=== PATIENT | female | born 1995 | race Hispanic/Latino ===

== ENCOUNTER 2018-01-09 21:00 | Emergency (ER) | payer OTHER ==
[2018-01-09 22:18] LABS: BASOPHILS % (AUTO) 0.5 % (0.0-5.0); EOSINOPHILS % (AUTO) 0.2 % (0.0-8.0); HEMATOCRIT 29.2 % (36-48); LYMPHOCYTES % (AUTO) 8.6 % (21.0-51.0); MEAN CORPUSCULAR HEMOGLOBIN 24.7 pg (27.0-33.0); MEAN CORPUSCULAR HGB CONC 33.3 g/dL (32.0-36.0); MEAN CORPUSCULAR VOLUME 74.2 fL (79-99); MONOCYTES % (AUTO) 5.4 % (3.0-13.0); NEUTROPHILS % (AUTO) 85.3 % (40.0-77.0); PLATELET COUNT (AUTO) 242 K/uL (130-400); RED BLOOD CELL COUNT(AUTO) 3.93 MIL/uL (4.00-5.50); RED CELL DISTRIBUTION WIDTH 14.9 % (11.0-15.5); WHITE BLOOD COUNT (AUTO) 10.6 K/uL (4.8-10.8)
[2018-01-09 22:34] LABS: CREATININE 0.6 mg/dL (0.5-1.5); POTASSIUM 3.2 mmol/L (3.5-5.1)
[2018-01-09 22:39] LABS: ALBUMIN 2.3 g/dL (3.5-5.0); BILIRUBIN,TOTAL 0.4 mg/dL (0.2-1.0); TOTAL PROTEIN, SERUM 6.3 g/dL (6.0-8.3)
[2018-01-09 22:56] LABS: RAPID GROUP A STREP NEGATIVE (NEGATIVE)
[2018-01-09] MEDS ORDERED: POTASSIUM BICARB/CIT AC 25 MEQ TABLET.EFF ONE (23:00)
[2018-01-09] MEDS ORDERED: ACETAMINOPHEN 325 MG TAB ONE (23:00)
[2018-01-10 00:22] LABS: APPEARANCE,URINE Clear (CLEAR); BILIRUBIN,URINE Negative (NEGATIVE); COLOR,URINE Yellow (YELLOW); GLUCOSE, URINE (UA) Negative (NEGATIVE); KETONES,URINE Negative (NEGATIVE); LEUKOCYTE ESTERASE ,URINE Small (NEGATIVE); NITRATE,URINE Negative (NEGATIVE); OCCULT BLOOD,URINE Negative (NEGATIVE); PH,URINE 7.5 (5.0-8.0); PROTEIN,URINE Negative (NEGATIVE); UROBILINOGEN,URINE 0.2 mg/dL (0.2-1.0)
[2018-01-10 00:41] LABS: BACTERIA,URINE Rare /HPF (None Seen); MUCUS,URINE Moderate LPF (None Seen); RBC,URINE 0-1 /HPF (0-1); SQUAMOUS EPITHELIAL CELL,UR Moderate /HPF (0-2)
== END 2018-01-10 02:53 | disposition home or self-care (01) ==
LOC: EDH 21:00
DX: M79.1 Myalgia (principal); R50.9 Fever, unspecified; M25.50 Pain in unspecified joint
CPT/HCPCS: 36415; 71045; 76856; 80053; 81001; 85025; 87040; 87088; 87804; 87880; 96360; 96361

== ENCOUNTER 2018-10-28 16:30 | Observation (INO) | payer MEDICAID, OTHER ==
[~2018-10-28] VITALS: Ht 149.9 cm; Wt 57.2 kg
[2018-10-28] MEDS ORDERED: ACETAMINOPHEN 325 MG TAB ONE ×2 (18:09→23:37)
[2018-10-28] MEDS ORDERED: ONDANSETRON ODT 4 MG TAB ONE (18:09)
[2018-10-28] MEDS ORDERED: ONDANSETRON HCL 4 MG/2 ML VIAL ONE (18:14)
[2018-10-28 18:23] LABS: BASOPHILS % (AUTO) 0.3 % (0.0-5.0); EOSINOPHILS % (AUTO) 0.3 % (0.0-8.0); HEMATOCRIT 30.8 % (36-48); LYMPHOCYTES % (AUTO) 10.3 % (21.0-51.0); MEAN CORPUSCULAR HEMOGLOBIN 23.9 pg (27.0-33.0); MEAN CORPUSCULAR HGB CONC 32.9 g/dL (32.0-36.0); MEAN CORPUSCULAR VOLUME 72.6 fL (79-99); MONOCYTES % (AUTO) 4.6 % (3.0-13.0); NEUTROPHILS % (AUTO) 84.5 % (40.0-77.0); PLATELET COUNT (AUTO) 284 K/uL (130-400); RED BLOOD CELL COUNT(AUTO) 4.24 MIL/uL (4.00-5.50); RED CELL DISTRIBUTION WIDTH 15.5 % (11.0-15.5); WHITE BLOOD COUNT (AUTO) 12.5 K/uL (4.8-10.8)
[2018-10-28 18:37] LABS: CREATININE 0.5 mg/dL (0.5-1.5); POTASSIUM 3.3 mmol/L (3.5-5.1)
[2018-10-28 18:42] LABS: ALBUMIN 2.8 g/dL (3.5-5.0); BILIRUBIN,TOTAL 0.5 mg/dL (0.2-1.0); TOTAL PROTEIN, SERUM 7.2 g/dL (6.0-8.3)
[2018-10-28] MEDS ORDERED: SODIUM CHLORIDE 0.9% 1000ML 1,000 ML IV ONE (19:11)
[2018-10-28] MEDS ORDERED: POTASSIUM BICARB/CIT AC 25 MEQ TABLET.EFF ONE (19:11)
[2018-10-28] MEDS ORDERED: MAGNESIUM OXIDE 400 MG TABLET PO ONE (19:11)
[2018-10-28 19:30] LABS: APPEARANCE,URINE CLOUDY (CLEAR); BILIRUBIN,URINE NEGATIVE (NEGATIVE); COLOR,URINE YELLOW (YELLOW); GLUCOSE, URINE (UA) NEGATIVE (NEGATIVE); KETONES,URINE 5 mg/dL (NEGATIVE); LEUKOCYTE ESTERASE ,URINE NEGATIVE (NEGATIVE); NITRATE,URINE NEGATIVE (NEGATIVE); OCCULT BLOOD,URINE TRACE-INTACT (NEGATIVE); PROTEIN,URINE NEGATIVE (NEGATIVE); UROBILINOGEN,URINE 0.2 mg/dL (0.2-1.0)
[2018-10-28 19:40] LABS: WBC,URINE 0-1 /HPF (0-1)
[2018-10-28 19:41] LABS: AMORPHOUS SEDIMENT,UR Few /LPF (None Seen); BACTERIA,URINE Few /HPF (None Seen); SQUAMOUS EPITHELIAL CELL,UR Few /HPF (0-2)
[2018-10-28] MEDS ORDERED: CEFTRIAXONE SODIUM 1 GM ONE (20:26)
[2018-10-28] MEDS ORDERED: SODIUM CHLORIDE 0.9% 50 ML IV ONE (20:26)
[2018-10-28 23:14] LABS: AMPHET/METH SCREEN,URINE NEGATIVE (NEGATIVE); BARBITURATE SCREEN, URINE NEGATIVE (NEGATIVE); BENZODIAZEPINES SCREEN,URINE NEGATIVE (NEGATIVE); CANNABINOID SCREEN,URINE NEGATIVE (NEGATIVE); COCAINE SCREEN,URINE NEGATIVE (NEGATIVE); OPIATE SCREEN,URINE NEGATIVE (NEGATIVE); PHENCYCLIDINE SCREEN,URINE NEGATIVE (NEGATIVE)
[2018-10-28] MEDS ORDERED: AMPICILLIN 2GM+NS 100ML 100 ML IV ONE (23:37)
[2018-10-28] MEDS: LACTATED RINGERS 1000ML 1,000 ML IV PRN (23:43)
[2018-10-29] MEDS: LACTATED RINGERS 1000ML 1,000 ML IV PRN ×2 (03:19→15:48)
[2018-10-29] MEDS: ACETAMINOPHEN 325 MG TAB PO PRN ×3 (03:20→18:30)
[2018-10-29] MEDS: AMPICILLIN 2GM+NS 100ML 100 ML IV SCH ×3 (05:40→18:24)
[2018-10-29 11:01] VITALS: BP 107/64
[2018-10-29] MEDS ORDERED: PREN1CAP31 PO (11:15)
--- NOTE | 2018-10-29 14:25 | NUR ---
NST FHT: 125, MOVEMENT NOTED, MODERATE VARIABILITY w/ ACCELERATIONS NOTED, NO CONTRACTIONS, TOLERATED WELL, NO C/O PAIN
[2018-10-29 15:19] VITALS: BP 110/68
[2018-10-29 19:28] VITALS: BP 100/61
--- NOTE | 2018-10-29 20:40 | NUR ---
EFM started [id number], discontinued at 2113 FHT - 150 reactive strip no contractions, accels noted movements felt by pt Addendum: 10/29/18 at 2345 by ALFRED AHN RN Amended: Links added.
[2018-10-29 23:31] VITALS: BP 94/50
[2018-10-30] MEDS: AMPICILLIN 2GM+NS 100ML 100 ML IV SCH ×3 (00:25→12:18)
[2018-10-30] MEDS: LACTATED RINGERS 1000ML 1,000 ML IV PRN (00:25)
[2018-10-30] MEDS: ACETAMINOPHEN 325 MG TAB PO PRN ×3 (01:20→12:20)
[2018-10-30 03:44] VITALS: BP 106/62
[2018-10-30 07:21] VITALS: BP 101/66
--- NOTE | 2018-10-30 11:36 | NUR ---
NST MOVEMENT FELT BY MOTHER; NST REACTIVE, FHT 125, MODERATE VARIABILITY, ACCELERATIONS NOTED X1 CONTRACTION; BEGAN AT 1040 ENDED AT 1125
[2018-10-30 11:49] VITALS: BP 105/59
--- NOTE | 2018-10-30 13:45 | NUR ---
DISCHARGE PT STABLE, NO PAIN, NO COMPLAINTS; PT LEFT UNIT, VIA WHEELCHAIR, STILL , ACCOMPANIED BY RN AND FAMILY MEMBERS CARRYING ALL PERSONAL BELONGINGS, INSTRUCTIONS, AND PRESCRIPTION; PT LEFT FACILITY IN PERSONAL VEHICLE
== END 2018-10-30 13:45 | disposition home or self-care (01) ==
LOC: EDH 16:30 → LDH 16:31 → UNDOADMOB 21:00 → LDH 21:00 → WSH 23:53
PROVIDERS: ADMIT Obstetrics & Gynecology; ATTEND Obstetrics & Gynecology
DX: O99.89 Other specified diseases and conditions complicating pregnancy, childbirth and the puerperium (principal); M54.5 Low back pain; Z3A.32 32 weeks gestation of pregnancy
CPT/HCPCS: 36415; 59025 ×2; 76770; 80053; 80305; 81001; 85025; 96365; 96366 ×2; 99284; G0378 ×45; J0290 ×7; J0696; J2405; J7030; J7120 ×4; 96360; 96361

== ENCOUNTER 2021-08-21 22:41 | Emergency (ER) | payer MEDICAID, OTHER ==
[~2021-08-21] VITALS: Ht 152.4 cm; Wt 56.7 kg
[~2021-08-21 22:41] MED LIST: PREN1CAP31 PO
[2021-08-21 23:18] LABS: APPEARANCE,URINE Clear (CLEAR); BILIRUBIN,URINE Negative (NEGATIVE); COLOR,URINE Yellow (YELLOW); GLUCOSE, URINE (UA) Negative (NEGATIVE); KETONES,URINE Negative (NEGATIVE); LEUKOCYTE ESTERASE ,URINE Trace (NEGATIVE); NITRATE,URINE Negative (NEGATIVE); OCCULT BLOOD,URINE Trace (NEGATIVE); PH,URINE 6.5 (5.0-8.0); PROTEIN,URINE Negative (NEGATIVE)
[2021-08-21 23:26] LABS: BACTERIA,URINE Rare /HPF (None Seen); SQUAMOUS EPITHELIAL CELL,UR 0-2 /HPF (0-2)
[2021-08-21 23:30] LABS: BASOPHILS % (AUTO) 0.7 % (0.0-5.0); EOSINOPHILS % (AUTO) 2.5 % (0.0-8.0); HEMATOCRIT 41.6 % (36-48); LYMPHOCYTES % (AUTO) 38.1 % (21.0-51.0); MEAN CORPUSCULAR HEMOGLOBIN 25.1 pg (27.0-33.0); MEAN CORPUSCULAR HGB CONC 33.2 g/dL (32.0-36.0); MEAN CORPUSCULAR VOLUME 75.6 fL (79-99); MONOCYTES % (AUTO) 7.3 % (3.0-13.0); NEUTROPHILS % (AUTO) 51.2 % (40.0-77.0); PLATELET COUNT (AUTO) 329 K/uL (130-400); RED CELL DISTRIBUTION WIDTH 15.1 % (11.0-15.5); WHITE BLOOD COUNT (AUTO) 8.5 K/uL (4.8-10.8)
[2021-08-21] MEDS ORDERED: DiphenhydrAMINE HCL 50 MG/ML VIAL IM ONE (23:30)
[2021-08-21] MEDS ORDERED: 0.9%NACL 1000ML 1,000 ML IV ONE (23:30)
[2021-08-21] MEDS ORDERED: ACETAMINOPHEN 500 MG TABLET PO ONE (23:30)
[2021-08-21] MEDS ORDERED: METOCLOPRAMIDE 10 MG/2 ML VIAL IM ONE (23:30)
[2021-08-22 00:07] LABS: CARBON DIOXIDE 25 mmol/L (21-32); CHLORIDE 104 mmol/L (101-111); CREATININE 0.6 mg/dL (0.5-1.5); GLOMERULAR FILTR. RATE CALC 127 mL/min (>60); GLUCOSE,RANDOM 107 mg/dL (70-105); POTASSIUM 3.6 mmol/L (3.5-5.1); SODIUM SERUM 142 mmol/L (136-145); UREA NITROGEN, BLOOD 21 mg/dL (7-18)
[2021-08-22 00:12] LABS: ALANINE AMINOTRANSFERASE 63 U/L (12-78); ALBUMIN 4.2 g/dL (3.5-5.0); ASPARTATE AMINOTRANSFERASE 30 U/L (10-37); BILIRUBIN,TOTAL 0.4 mg/dL (0.2-1.0); TOTAL PROTEIN, SERUM 7.9 g/dL (6.0-8.3)
[2021-08-22 00:13] LABS: CRP QUANTITATIVE < 2.00 mg/L (0.00-9.0)
[2021-08-22] MEDS ORDERED: IBUP-2070 PO (02:10)
[2021-08-22 02:28] VITALS: BP 103/62
== END 2021-08-22 02:22 | disposition home or self-care (01) ==
LOC: EDH 22:41
DX: R51.9 Headache, unspecified (principal); Z79.899 Other long term (current) drug therapy
CPT/HCPCS: 36415; 70450; 80053; 81001; 81025; 85025; 86140; 96360; 96361; 96372 ×2; 99284; J1200; J2765; J7030

== ENCOUNTER 2024-05-06 21:29 | Inpatient (IN) | payer SELFPAY ==
[~2024-05-06] VITALS: Ht 162.6 cm; Wt 67.6 kg
[~2024-05-06 21:29] MED LIST changes: +IBUP-2070 PO
[2024-05-06 22:34] LABS: APPEARANCE,URINE CLEAR (CLEAR); BILIRUBIN,URINE NEGATIVE (NEGATIVE); COLOR,URINE LIGHT-YELLOW (YELLOW); GLUCOSE, URINE (UA) NEGATIVE (NEGATIVE); KETONES,URINE NEGATIVE (NEGATIVE); LEUKOCYTE ESTERASE ,URINE NEGATIVE Leu/uL (NEGATIVE); NITRATE,URINE NEGATIVE (NEGATIVE); OCCULT BLOOD,URINE NEGATIVE (NEGATIVE); PROTEIN,URINE NEGATIVE (NEGATIVE); UROBILINOGEN,URINE 0.2 mg/dL (0.2-1.0)
[2024-05-06 22:56] LABS: ADD UA MICROSCOPIC NO
[2024-05-07] VITALS (7 sets, daily range): BP systolic 106–149; BP diastolic 59–84; PULSE 62–75; RESP 17–18; O2SAT 97
[2024-05-07 01:06] LABS: BASOPHILS # (AUTO) 0.05 K/uL (0.00-0.20); BASOPHILS % (AUTO) 0.4 % (0.0-5.0); EOSINOPHILS # (AUTO) 0.08 K/uL (0.00-0.70); EOSINOPHILS % (AUTO) 0.6 % (0.0-8.0); HEMATOCRIT 40.8 % (36-48); IMMATURE GRANULOCYTE ABSOLUTE 0.03 K/uL (0-1); LYMPHOCYTES % (AUTO) 14.9 % (21.0-51.0); MEAN CORPUSCULAR HEMOGLOBIN 25.2 pg (27.0-33.0); MEAN CORPUSCULAR HGB CONC 33.1 g/dL (32.0-36.0); MEAN CORPUSCULAR VOLUME 76.1 fL (79-99); MONOCYTES # (AUTO) 0.6 K/uL (0.1-1.0); MONOCYTES % (AUTO) 4.4 % (3.0-13.0); NEUTROPHILS # (AUTO) 10.8 K/uL (1.8-7.7); NEUTROPHILS % (AUTO) 79.5 % (40.0-77.0); PLATELET COUNT (AUTO) 361 K/uL (130-400); RED BLOOD CELL COUNT(AUTO) 5.36 MIL/uL (4.00-5.50); RED CELL DISTRIBUTION WIDTH 14.5 % (11.0-15.5); WHITE BLOOD COUNT (AUTO) 13.6 K/uL (4.8-10.8)
[2024-05-07 01:11] LABS: CREATININE 0.6 mg/dL (0.5-1.0); POTASSIUM 3.6 mmol/L (3.5-5.1)
[2024-05-07 01:13] LABS: ALBUMIN 4.2 g/dL (3.5-5.0); BILIRUBIN,TOTAL 0.7 mg/dL (0.2-1.0); TOTAL PROTEIN, SERUM 8.2 g/dL (6.0-8.3)
[2024-05-07] MEDS: KETOROLAC 15MG/ML VIAL (15MG/ML) IV ONE (01:36)
[2024-05-07] MEDS: 0.9%NACL 1000ML 1,000 ML IV ONE (01:36)
[2024-05-07] MEDS: ONDANSETRON 4MG INJ IVP ONE (02:40)
[2024-05-07] MEDS: MORPHINE 2 MG SYG IVP ONE (02:40)
[2024-05-07] MEDS ORDERED: hydrALAZine 20MG/ML VIAL IV PRN (04:30)
[2024-05-07] MEDS ORDERED: acetaMINOPHEN 650 MG SUPPOSITORY RC PRN (04:30)
[2024-05-07] MEDS ORDERED: DOCUSATE SODIUM 100 MG CAP PO PRN (04:30)
[2024-05-07] MEDS ORDERED: TEMAZEPAM 15 MG CAPSULE PO PRN (04:30)
[2024-05-07] MEDS ORDERED: LACTULOSE 20 GM/30 ML UDCUP PO PRN (04:30)
[2024-05-07] MEDS: cefTRIAXone 1G VIAL IVPB ONE (04:32)
[2024-05-07] MEDS: TAMSULOSIN HCL 0.4 MG CAP.ER.24H PO SCH (04:33)
[2024-05-07] MEDS: HYDROMORPHONE 1 MG INJ IVP PRN (04:33)
[2024-05-07] MEDS: PHENAZOPYRIDINE HCL 200 MG TABLET PO SCH (04:38)
[2024-05-07] MEDS: INSULIN HUMULIN R 100 UNIT/ML 3ML SQ SCH (07:30)
[2024-05-07] MEDS ORDERED: POTASSIUM CHLORIDE 20MEQ/100ML 100 ML IV PRN (08:00)
[2024-05-07] MEDS ORDERED: MAGNESIUM 2GM PREMIX 50ML 50 ML IV PRN (08:00)
[2024-05-07] MEDS: FAMOTIDINE 20MG TAB PO SCH (08:59)
[2024-05-07] MEDS: ENOXAPARIN SODIUM 40 MG/0.4 ML SYRINGE SQ SCH (08:59)
[2024-05-07] MEDS: 0.9%NACL 1000ML 1,000 ML IV SCH (12:45)
[2024-05-07] MEDS: ONDANSETRON 4MG INJ IVP PRN (15:52)
[2024-05-07] MEDS: CEFTRIAXONE 2GM VIAL IVPB SCH (18:27)
[2024-05-07] MEDS: HYDROCODONE/ACETAMINOPHEN 5/325 MG TAB PO PRN (23:47)
[2024-05-08] VITALS (7 sets, daily range): BP systolic 113–138; BP diastolic 70–90; PULSE 57–74; RESP 16–20; O2SAT 97–99
[2024-05-08 05:33] LABS: CREATININE 0.6 mg/dL (0.5-1.0); MAGNESIUM 1.7 mg/dL (1.80-2.40); PHOSPHORUS 3.6 mg/dL (2.5-4.9); POTASSIUM 3.4 mmol/L (3.5-5.1)
[2024-05-08 05:40] LABS: BASOPHILS # (AUTO) 0.03 K/uL (0.00-0.20); BASOPHILS % (AUTO) 0.4 % (0.0-5.0); EOSINOPHILS % (AUTO) 1.4 % (0.0-8.0); HEMATOCRIT 32.1 % (36-48); IMMATURE GRANULOCYTE ABSOLUTE 0.01 K/uL (0-1); LYMPHOCYTES # (AUTO) 2.9 K/uL (1.0-4.8); LYMPHOCYTES % (AUTO) 42.1 % (21.0-51.0); MEAN CORPUSCULAR HEMOGLOBIN 25.5 pg (27.0-33.0); MEAN CORPUSCULAR VOLUME 77.2 fL (79-99); MONOCYTES # (AUTO) 0.5 K/uL (0.1-1.0); MONOCYTES % (AUTO) 7.5 % (3.0-13.0); NEUTROPHILS # (AUTO) 3.4 K/uL (1.8-7.7); NEUTROPHILS % (AUTO) 48.5 % (40.0-77.0); PLATELET COUNT (AUTO) 270 K/uL (130-400); RED BLOOD CELL COUNT(AUTO) 4.16 MIL/uL (4.00-5.50); RED CELL DISTRIBUTION WIDTH 14.6 % (11.0-15.5); WHITE BLOOD COUNT (AUTO) 6.9 K/uL (4.8-10.8)
[2024-05-08 05:46] LABS: HEMOGLOBIN A1C 5.6 % (4.0-6.0)
[2024-05-08] MEDS ORDERED: IOHEXOL 350 MG/ML 100ML INFUS..BTL IV ONE (08:15)
[2024-05-08 14:25] LABS: APPEARANCE,URINE CLEAR (CLEAR); BILIRUBIN,URINE NEGATIVE (NEGATIVE); COLOR,URINE DARK-YELLOW (YELLOW); GLUCOSE, URINE (UA) NEGATIVE (NEGATIVE); KETONES,URINE NEGATIVE (NEGATIVE); LEUKOCYTE ESTERASE ,URINE NEGATIVE Leu/uL (NEGATIVE); NITRATE,URINE NEGATIVE (NEGATIVE); OCCULT BLOOD,URINE NEGATIVE (NEGATIVE); PROTEIN,URINE NEGATIVE (NEGATIVE); UROBILINOGEN,URINE 0.2 mg/dL (0.2-1.0)
[2024-05-08 14:26] LABS: ADD UA MICROSCOPIC NO
[2024-05-08] MEDS: acetaMINOPHEN 325 MG TAB PO PRN (20:01)
[2024-05-09] VITALS: BP 120/84; PULSE 69; RESP 18
[2024-05-09 04:00] VITALS: BP 118/70; PULSE 74; RESP 18
[2024-05-09 05:29] LABS: HEMATOCRIT 35.1 % (36-48); MEAN CORPUSCULAR HEMOGLOBIN 25.3 pg (27.0-33.0); MEAN CORPUSCULAR VOLUME 76.5 fL (79-99); RED BLOOD CELL COUNT(AUTO) 4.59 MIL/uL (4.00-5.50); RED CELL DISTRIBUTION WIDTH 14.2 % (11.0-15.5); WHITE BLOOD COUNT (AUTO) 7.4 K/uL (4.8-10.8)
[2024-05-09 06:00] LABS: CREATININE 0.7 mg/dL (0.5-1.0); MAGNESIUM 1.9 mg/dL (1.80-2.40); POTASSIUM 3.2 mmol/L (3.5-5.1); THYROID STIMULATING HORMONE 0.81 uIU/mL (0.36-3.74)
[2024-05-09 08:00] VITALS: BP 122/86; PULSE 64; RESP 17
[2024-05-09 08:30] VITALS: O2SAT 99
[2024-05-09 12:00] VITALS: BP 129/81; PULSE 72; RESP 19
[2024-05-09] MEDS ORDERED: TAMS-1 PO (15:14)
[2024-05-09] MEDS ORDERED: FAMO20TA8 PO (15:14)
[2024-05-09] MEDS ORDERED: AMOX-426 PO (15:14)
[2024-05-09] MEDS ORDERED: KCL 20 MEQ ERTAB PO ONE (16:00)
== END 2024-05-09 16:10 | disposition home or self-care (01) | DRG 694 ==
LOC: EDH 21:29 → EDHIP 21:30 → OBSVTOIN 05-07 03:57 → UNDOADMOB 05-07 03:57 → INTOOBSV 05-07 03:57 → WSH 05-07 10:55 → EDHIP 05-07 10:55 → WSH 05-07 16:00 → 3CH 05-07 16:00
PROVIDERS: ADMIT Internal Medicine; ATTEND Internal Medicine
DX: N13.2 Hydronephrosis with renal and ureteral calculous obstruction (principal); R71.0 Precipitous drop in hematocrit; E11.65 Type 2 diabetes mellitus with hyperglycemia; N28.89 Other specified disorders of kidney and ureter; E83.59 Other disorders of calcium metabolism; D72.829 Elevated white blood cell count, unspecified; I10 Essential (primary) hypertension; Z82.49 Family history of ischemic heart disease and other diseases of the circulatory system; Z83.3 Family history of diabetes mellitus; Z87.442 Personal history of urinary calculi
CPT/HCPCS: 36415; 74176; 74400; 76856; 80048; 80053; 81003; 81025; 82948; 83036; 83605; 83735; 84100; 84145; 84443; 85025; 85027; 87086; G0378; J0696; J1170; J1650; J1885; J2270; J2405; J7030; Q9967